=== PATIENT | male | born 1960 | race Caucasian/White ===

== ENCOUNTER → 2020-01-19 11:42 | Outpatient (BNVA) | payer BC, SELFPAY | PROVIDERS: PCP Electrodiagnostic Medicine; Visit Provider Nurse Practitioner Family | DX: Z20.828 Contact with and (suspected) exposure to other viral communicable diseases (principal); J06.9 Acute upper respiratory infection, unspecified | CPT/HCPCS: 87635 ==

== ENCOUNTER 2020-02-02 07:08 | Outpatient (CLI) | payer BC, SELFPAY ==
--- NOTE | 2020-02-02 07:15 | XRR_ITS ---
PROCEDURE INFORMATION: Exam: XR Abdomen, 1 View Exam date and time: 02/02/2020 7:36 AM Age: 59 years old Clinical indication: Condition or disease; Kidney or ureter condition; Calculus (stone) in kidney; Prior surgery; Additional info: Renal stones TECHNIQUE: Imaging protocol: XR of the abdomen. Views: Frontal supine view of the abdomen. 1 View. COMPARISON: NM XR KUB [id number] 07/09/2018 9:19 AM FINDINGS: Gastrointestinal tract: Prominent right-sided stool, with paucity of bowel gas. Intraperitoneal space: Subcentimeter pelvic calcifications, which can be better characterized with CT if clinically indicated. Organs: Multiple bilateral renal calculi again demonstrated, including a 14 mm right renal calculus. Vasculature: Vascular calcification. Bones/joints: Dextroscoliosis and degenerative change. XR/XR KUB [id number] IMPRESSION: 1. Multiple bilateral renal calculi again demonstrated, including a 14 mm right renal calculus. 2. Additional findings as described above.
== END 2020-02-02 07:09 | disposition home or self-care (01) ==
PROVIDERS: PCP Electrodiagnostic Medicine; Visit Provider Urology
DX: N20.0 Calculus of kidney (principal)
CPT/HCPCS: 74018; 81001

== ENCOUNTER 2021-02-01 10:19 | Outpatient (CLI) | payer OTHER, SELFPAY ==
--- NOTE | 2021-02-01 10:15 | XR_ITS ---
WS: [id number] XR KUB [id number] REASON FOR EXAM: RENAL CALCULI FINDINGS: Multiple intrarenal calculi bilaterally. Several of these calculi are complex in configuration. There are calculi in the right kidney which measure 15 mm in the largest dimension. Compared to the previous examination of 02/02/2020 the stone burden in the right kidney kidney does n ot appear to have changed. The stone burden in the left kidney may have changed in the upper pole collection of calculi. (Equivo florence). In the left pelvis there are calcific densities not present on the previous examination. The most pr oximal of these measures 9 x 4 mm. The more inferior measures 6 x 3 mm. They appear to be distal left ureteral calculi. XR/XR KUB [id number] IMPRESSION: Bilateral intrarenal calculi Stone burden in the right kidney appears unchanged. Equivocal change in the stone burden the upper pole of the left kidney. Presumed left distal ureteral calculi as above.
== END 2021-02-01 10:20 | disposition home or self-care (01) ==
LOC: RAD 10:23
PROVIDERS: PCP Electrodiagnostic Medicine; Visit Provider Urology
DX: N20.0 Calculus of kidney (principal); N40.1 Benign prostatic hyperplasia with lower urinary tract symptoms
CPT/HCPCS: 74018; 81003

== ENCOUNTER 2021-02-07 07:43 | Outpatient (CLI) | payer OTHER, SELFPAY ==
--- NOTE | 2021-02-07 08:00 | XR_ITS ---
WS: [id number] KUB, AP supine, 02/07/2021 Clinical Data: RENAL CALCULI Comparison: KUB, 02/01/2021. Findings: Bilateral renal calculi remain the same. There are numerous calcifications in the true pelvis unchang ed. There is a dextroscoliosis. XR/XR KUB [id number] Impression: No change in bilateral renal calculi and pelvic calculi.
== END 2021-02-07 07:44 | disposition home or self-care (01) ==
PROVIDERS: PCP Electrodiagnostic Medicine; Visit Provider Urology
DX: N20.0 Calculus of kidney (principal)
CPT/HCPCS: 74018; 81003

== ENCOUNTER 2021-02-09 08:07 | Outpatient (CLI) | payer OTHER, SELFPAY ==
--- NOTE | 2021-02-09 08:10 | US_ITS ---
WS: [id number] ULTRASOUND RENAL TECHNIQUE: Ultrasound examination of both kidneys. CLINICAL INFORMATION: RENAL CALCULI COMPARISON: None. FINDINGS: RIGHT: Simple right renal cyst measuring 8.1 x 8.3 x 7.5 cm. Right renal parenchymal calculi measurin g 8 mm. Right kidney is normal in size and appearance. Echogenicity: Normal. Cortical thickness: 1.4 cm; Normal. Hydronephrosis: None. Perinephric fluid: None. Right kidney measures: 13.8 cm x 5.7 cm x 4.8 cm. LEFT: Nonobstructing left renal parenchymal calculi largest measuring 15 mm Left kidney is normal in size and appearance. Echogenicity: Normal. Cortical thickness: 1.2 cm; Normal. Hydronephrosis: None. Perinephric fluid: None. Left kidney measures: 12.9 cm x 7.1 cm x 5.7 cm. Normal visualized aorta.Prevoid bladder volume 166 cc Enlarged prostate measuring 4.5 x 4.9 x 4.2 cm with indentation on the bladder. Recommend correlation PSA US/US renal BI* [id number] IMPRESSION: 1. No hydronephrosis in either kidney. 2. Simple right renal cyst measuring 8.1 x 8.3 x 7.5 cm in the upper pole 3. Nonobstructing right renal parenchymal calculi measuring 8-9 mm. 4. Nonobstructing left renal parenchymal calculi largest measuring 15 mm 5. Prevoid bladder volume 166 cc 6. Enlarged prostate measuring 4.5 x 4.9 x 4.2 cm with indentation on the blad chuck. Recommend correlation PSA
== END 2021-02-09 08:08 | disposition home or self-care (01) ==
PROVIDERS: PCP Electrodiagnostic Medicine; Visit Provider Urology
DX: N20.0 Calculus of kidney (principal); N28.1 Cyst of kidney, acquired; N40.0 Benign prostatic hyperplasia without lower urinary tract symptoms; N20.1 Calculus of ureter
CPT/HCPCS: 76770; 81003

== ENCOUNTER 2021-03-09 08:32 | Outpatient (CLI) | payer OTHER, SELFPAY ==
--- NOTE | 2021-03-09 08:30 | XR_ITS ---
WS: [id number] Exam: XR KUB [id number] Date/Time of Exam: 03/09/2021 8:37 AM Reason For Exam: URETERAL CALCULUS Comparison 02/07/2021. Multiple calcifications superimpose both kidneys. These are likely renal stones. The largest calcific ations are in the right kidney. The largest stone measures about 15.76 mm at greatest dimension. No b owel obstruction or free air. No sign of organ enlargement. Degenerative change and dextroscoliosis o f the lumbar spine. Multiple bilateral pelvic calcifications are seen. XR/XR KUB [id number] IMPRESSION: 1. Multiple bilateral renal calculi. The largest stones are in the right kidney . 2. No acute abdominal process.
== END 2021-03-09 08:33 | disposition home or self-care (01) ==
LOC: RAD 08:35
PROVIDERS: PCP Electrodiagnostic Medicine; Visit Provider Urology
DX: N20.2 Calculus of kidney with calculus of ureter (principal); Z20.822 Contact with and (suspected) exposure to COVID-19
CPT/HCPCS: 74018; 81003; 87635

== ENCOUNTER 2021-03-11 08:17 | Outpatient (CLI) | payer OTHER, SELFPAY ==
--- NOTE | 2021-03-11 16:00 | CT_ITS ---
WS: [id number] Comparison 07/05/2011. Exam: CT abdomen pelvis wo con [id number] Date/Time of Exam: 03/11/2021 8:27 AM Reason For Exam: STONE DLP: 1462.[address] scans at [facility] use at least one of these dose optimization techniques: automated e xposure control; mA and/or kV adjustment per patient size (includes targeted exams where dose is matc hed to clinical indication); or iterative reconstruction. There are 2 minimally obstructing stones in the distal left ureter. The largest stone measures 11.4 m m at greatest diameter and is in the lower one third of the left ureter. The smaller stone measures 8 mm and is near the UV J. No significant hydronephrosis is seen. There are multiple prominent and sma ll nonobstructing stones in both kidneys. No stones are seen in the right ureter. There is an 8.3 cm cyst in the upper pole of the right kidney. Normal adrenal glands. The lower lung zones are clear. Th e abdominal aorta is normal in caliber. Unremarkable liver, gallbladder, spleen and stomach. No free air or lymphadenopathy. The pancreas is unremarkable. Small bowel loops are normal in caliber. No sig n of acute appendix. No significant large bowel abnormality is demonstrated. Intact urinary bladder. No mass or adenopathy in the pelvis. No destructive bone lesions. DJD and dextroscoliosis the lumbar spine. Mild prostatomegaly. The prostate gland measures 5.7 cm at greatest transverse dimension. CT/CT abdomen pelvis con [id number] IMPRESSION: 1. 2 minimally obstructing stones in the left ureter. The largest stone measure s 11.4 mm at greatest diameter and is in the lower one third of the left ureter . The smaller stone measures 8 mm at greatest diameter and is near the UVJ. 2. There are multiple prominent and small stones in both kidneys which are nono bstructing. 3. 8.3 cm upper pole cyst in the right kidney. 4. Other minor nonemergent findings as noted above.
== END 2021-03-11 08:18 | disposition home or self-care (01) ==
PROVIDERS: PCP Electrodiagnostic Medicine; Visit Provider Urology
DX: N20.1 Calculus of ureter (principal); N20.0 Calculus of kidney
CPT/HCPCS: 74176

== ENCOUNTER 2021-03-14 13:24 | Day surgery (SDC) | payer OTHER, SELFPAY ==
[2021-03-11 17:39] VITALS: BMI 33.5
[2021-03-14] VITALS (7 sets, daily range): BP systolic 132–163; BP diastolic 75–100; PULSE 47–60; RESP 16–18; TEMP 36.3–37.4; O2SAT 93–100
--- NOTE | 2021-03-14 | SCC_ITS ---
Procedure Done: 1. Cystoscopy, left retrograde ureteropyelogram 2. Left ureteroscopy with laser lithotripsy 3. Left ureteral stent placement 4.5 [place] by 28 cm double-pigtail stent with string attached distally. 37 seconds of fluoroscopic guidance, for a cumulative dose of 11.28 mGy, was provided to Dr. Rojas by the radiology department. C-arm images of the abdomen were saved for the patient's permanent record. PRIMITIVOD
--- NOTE | 2021-03-14 13:31 | SC_ITS ---
WS: [id number] C-ARM RADIOGRAPHS ABDOMEN; 2 IMAGES HISTORY: Left ureteroscopy COMPARISON: None available. Very limited evaluation of the abdomen. There is a vague outline of a pigtail catheter overlying the expected location of the LEFT kidney. SC/C-arm FL for Urology IMPRESSION: Intraoperative imaging during LEFT ureteroscopy.
[2021-03-14] MEDS: sodium chloride 0.9% 1,000 ML 30 ML IV (13:52)
--- NOTE | 2021-03-14 14:23 | ANES.PREANE2 ---
Pre-Anesthetic Assessment Pre-Anesthetic Assessment: Height/Weight: Height 1.83 m Weight 112.037 kg Temp Pulse Resp BP Pulse Ox 97.4 F L 55 L 18 162/100 97 03/14/21 13:42 03/14/21 13:42 03/14/21 13:42 03/14/21 13:42 03/14/21 13:42 Preop Diagnosis: Left ureteral calculus Proposed Procedure: Operation Date: 03/14/21 14:50 Proposed Procedures p Laser Lithotripsy 14310 72137 N20.1(Left) - MD jeanie Fonseca Cystoscopy(Left) - MD jeanie Fonseca Retrograde Pyelogram(Left) - MD jeanie Fonseca Ureteroscopy(Left) - MD jeanie Fonseca Ureteral Stent Placement(Left) - Marcel Rojas MD Familial anesthetic complications: None Was Beta Kristie taken within 24 hours: Yes Was Clonidine taken within 24 hours: N/A Last intake: Intake Last Liquid Date 03/14/21 Last Liquid Time 09:15 Last Solid Date 03/13/21 Last Solid Time 11:45 Social: Social History: No alcohol and No tobacco Airway: Cervical ROM: WNL MP: 3 Dentition: Full CV/HEM: CV/HEM: HTN Metabolic: Metabolic: Hyperlipidemia Anesthetic Plan: ASA status: 2 Anesthesia: General Risk of > 500 ml blood loss (7ml/kg in children): No Meds/Allergies Current Medications: Current Medications Generic Name Dose Route Start Last Admin Trade Name Freq PRN Reason Stop Dose Admin Sodium Chloride 1,000 mls @ 30 ml s/hr 03/14/21 13:45 03/14/21 13:52 Sodium Chloride 0.9% IV 03/15/21 13:44 30 mls/hr .Q24H MAXINE Administration PFSH Anesthesia PFSH: Medical History BPH loc w urin obs/LUTS HTN (hypertension) Hypocitraturia Renal calculi Surgical History H/O left breast biopsy benign H/O lymph node excision neck H/O umbilical hernia repair History of ear surgery acoustic neuroma S/P extracorporeal shock wave therapy S/P ureteral stent placement Family History Father , 49 Cancer Melanoma Mother , 83 Dementia Social History Alcohol intake: never Marital status: Current occupational status: employed History of recent travel: No Data Anesthesia CBC & Chem 7: 03/14/21 13:50 Cardiac Studies: No Data to Display
[2021-03-14 14:24] LABS: Anion Gap 15.7 (5-19); Blood Urea Nitrogen 17 mg/dL (8-23); Calcium 8.8 mg/dL (8.5-10.5); Carbon Dioxide 26 mmol/L (22-29); Chloride 102 mmol/L (98-107); Glomerular Filtration Rate 75.7 mL/min (90-130); Glucose 85 mg/dL (65-115); Osmolality Calculated 291 mOsm/kg (285-295); Potassium 3.7 mmol/L (3.5-5.1); Sodium 140 mmol/L (136-145)
--- NOTE | 2021-03-14 16:08 | W.PM.OPSUD ---
Surgery/Procedure H&P Update DATE OF PROCEDURE: March 14, 2021 DATE H&P PERFORMED: 03/09/21 H&P UPDATE INFORMATION: I have reviewed H&P completed within last 30 days, I have examined patient prior to procedure, No changes to prior documentation and H&P is in [facility] E[facility] on date indicated CHANGES TO PREVIOUS DOCUMENTATION: Unaware of having passed any stones. PREOP DIAGNOSIS: Left ureteral calculus PLANNED PROCEDURE: Operation Date: 03/14/21 14:50 Proposed Procedures p Laser Lithotripsy 79718 89743 N20.1(Left) - Marcel Rojas MD s Cystoscopy(Left) - Marcel Rojas MD s Retrograde Pyelogram(Left) - MD jeanie Fonseca Ureteroscopy(Left) - Marcel Rojas MD s Ureteral Stent Placement(Left) - Marcel Rojas MD
[2021-03-14] MEDS: levofloxacin-dextrose 5 % 500 MG/100 ML PREMIX 100 MG IV (16:17)
[2021-03-14] MEDS: iohexol 300 mg/mL 50 mL Btl (OR ONLY) XX (16:44)
--- NOTE | 2021-03-14 17:44 | PM.OP ---
Operative Report Date of procedure: March 14, 2021 Pre-op Diagnosis: Left ureteral calculi x2 Post-op diagnosis: same Post-op Findings: 2 stones in the left distal ureter. Both stones completely fragmented with fragments removed Procedure Done: 1. Cystoscopy, left retrograde ureteropyelogram 2. Left ureteroscopy with laser lithotripsy 3. Left ureteral stent placement 4.5 [place]ij[place] by 28 cm double-pigtail stent with string attached distally. Specimens removed/disposition: Stone fragments Pathology: Stone fragments Surgeon: Bob Anesthesia: General Estimated blood loss: <5 cc Urine output: Not measured Complications: none Findings: Stones were in the expected position. Completely fragmented with laser lithotripsy. All substantial fragments removed. Stent left indwelling at the completion of the procedure with string attached distally. Condition: stable Disposition: PACU Brief History: Mr. Maxwell is a very pleasant 61-year-old white male with a history of recurrent urolithiasis who was recently diagnosed on routine surveillance KUB for bilateral renal calculi to have 2 suspicious calcifications in the area of the left distal ureter. Ultimately underwent a CT scan to confirm that these were actually ureteral and that he was having no symptoms. CT scan showed no evidence of significant obstruction but both the calcification suspicious for ureteral stones were confirmed to be ureteral stones. He is admitted now for endoscopic treatment of the stones. We discussed ESWL but in the past he has had very little luck with ESWL significantly fragmenting the stones. Procedure: After routine preoperative evaluation examination and obtaining of informed consent he was taken to the operating suite on 03/14/2021 where general anesthesia was administered without difficulty after appropriate timeout was performed, SCDs confirmed to be functioning, preoperative antibiotics administered, beta-karen protocol confirmed. Prepped and draped in usual sterile fashion in dorsolithotomy position paying careful attention to avoiding pressure points. 21 Azerbaijani cystoscope with 30 degree lens was introduced into the urethral meatus and advanced into the bladder under videoscopy. The bladder was systematically examined and found to be within normal limits. He had a very large prostate with moderate trabeculation of the bladder. An 8 Azerbaij[place] cone-tip catheter was intubated to the right ureteral orifice for right retrograde ureteropyelogram demonstrating the calcification seen on fluoroscopy to be within ureter. The ureter proximal to that was mildly dilated only. A flexible tip guidewire was easily advanced up the left ureter bypassing the 2 stones and curling in the area of the upper pole calyx. The distal ureter was then dilated with a 15 Azerbaijani 4 cm balloon with no waist at 4 mehdi of pressure. The wire was secured to the drapes as a safety wire and then a 7.5 [place]ij[place] offset semirigid ureteroscope was easily advanced up the left ureter encountering the more distal stone initially which was fragmented with a 365 ?m thulium superpulse laser fiber into small pieces that were basketed out. After clearance of these fragments the scope was then passed up to the larger more proximally located stone which was as well fragmented in the same fashion utilizing dusting technique as well. On final inspection after removal with a basket no significant fragments remained with passage of the scope up to the proximal ureter. The stones which had been dropped into the bladder with passage of the ureteroscope were then evacuated out through the cystoscope. Final inspection revealed no significant fragments remaining in the bladder. The cystoscope was then backloaded over the guidewire and a 4.5 [place]ij[place] by 28 cm double-pigtail stent with string attached distally was advanced over the guidewire through the cystoscope into appropriate position as confirmed via fluoroscopy and cystoscopy. The string was shortened bladder drained and the procedure was completed. He tolerated procedure well without complications and was awakened in the operating room and returned to the recovery room in stable condition. PLANS: 1. Anticipate discharge from outpatient surgery 2. Stent removal with string at a time to be arranged, preferably next week if he can tolerate the stent adequately.
--- NOTE | 2021-03-14 18:04 | SUR.PHASEI ---
0756 pt awakes easily to voice oral airway out pt on RA trial, pt alert with good resp effort, VSS. iv patent , pt denies pain , nausea, and cold.
[2021-03-19 21:04] LABS: Stone Source NOT GIVEN
== END 2021-03-14 18:52 | disposition home or self-care (01) ==
PROVIDERS: Anesthesiology; PCP Electrodiagnostic Medicine; Visit Provider Urology
PROC: (CPT 52356; principal; 2021-03-14 14:30)
PROC: 0TJB8ZZ Inspection of Bladder, Via Natural or Artificial Opening Endoscopic (ICD-10-PCS; CPT 52000; 2021-03-14 14:30)
PROC: (CPT 74420; 2021-03-14 14:30)
PROC: 0TJ98ZZ Inspection of Ureter, Via Natural or Artificial Opening Endoscopic (ICD-10-PCS; CPT 52351; 2021-03-14 14:30)
PROC: (CPT 50605; 2021-03-14 14:30)
DX: N20.1 Calculus of ureter (principal); I10 Essential (primary) hypertension; Z87.442 Personal history of urinary calculi
CPT/HCPCS: 52356; 36415; 76000; 80048; 82365; 88300; C2625; J1956; J2405; J2704; J3010; J3490; J7030

== ENCOUNTER 2021-12-22 09:02 | Outpatient (CLI) | payer OTHER, SELFPAY ==
--- NOTE | 2021-12-22 09:11 | XR_ITS ---
WS: [id number] Exam: XR KUB [id number] Date/Time of Exam: 12/22/2021 9:11 AM Reason For Exam: N20.0 - Calculus of kidney No bowel obstruction or free air. Numerous calcifications superimpose both kidneys apparently represe nting known renal stones. Nonspecific bilateral pelvic calcifications. No sign of organ enlargement. Advanced DJD of the lumbar spine with dextroscoliosis. XR/XR KUB [id number] IMPRESSION: 1. Multiple bilateral renal calculi. 2. No acute abdominal process.
[2021-12-22 11:56] LABS: Prostate Specific AG Urology 2.14 ng/mL (0-4)
== END 2021-12-22 09:03 | disposition home or self-care (01) ==
LOC: RAD 09:03
PROVIDERS: PCP Electrodiagnostic Medicine; Visit Provider Urology
DX: Z12.5 Encounter for screening for malignant neoplasm of prostate (principal); N20.0 Calculus of kidney
CPT/HCPCS: 36415; 74018; 81003; 84153; 87086

== ENCOUNTER 2022-07-04 09:47 | Outpatient (CLI) | payer OTHER, SELFPAY ==
--- NOTE | 2022-07-04 09:55 | XRR_ITS ---
PROCEDURE INFORMATION: Exam: XR Abdomen Exam date and time: 07/04/2022 9:58 AM Age: 62 years old Clinical indication: Condition or disease; Kidney or ureter condition; Calculus (stone) in kidney; Additional info: Urolithiasis, lindsayb @ [facility] 07/04/22 @ 0945 appointment to follow TECHNIQUE: Imaging protocol: Radiologic exam of the abdomen. Views: Frontal supine view of the abdomen. 1 View. COMPARISON: 1. CR XR KUB [id number] 12/22/2021 9:[address] abdomen pelvis wo con [id number] 03/11/2021 8:35 AM FINDINGS: Gastrointestinal tract: Nonobstructive bowel gas pattern. Organs: Bilateral nephrolithiasis again noted, without significant change from prior exam. Vasculature: Multiple calcified vascular phleboliths noted in the pelvis. Bones/joints: Scoliotic curvature of the spine with multilevel degenerative disc disease. XR/XR KUB [id number] IMPRESSION: Bilateral nephrolithiasis again noted, without significant change from prior exam.
== END 2022-07-04 09:48 | disposition home or self-care (01) ==
LOC: RAD 09:50
PROVIDERS: PCP Electrodiagnostic Medicine; Visit Provider Urology
DX: N20.0 Calculus of kidney (principal)
CPT/HCPCS: 74018

== ENCOUNTER → 2023-02-27 10:17 | Outpatient (BNVA) | payer OTHER, SELFPAY | PROVIDERS: PCP Electrodiagnostic Medicine; Visit Provider Nurse Practitioner Family | DX: L21.8 Other seborrheic dermatitis (principal); L57.0 Actinic keratosis; L82.1 Other seborrheic keratosis; L81.4 Other melanin hyperpigmentation; L57.8 Other skin changes due to chronic exposure to nonionizing radiation | CPT/HCPCS: 17000; 99214 ==

== ENCOUNTER → 2023-08-27 11:23 | Outpatient (BNVA) | payer OTHER, SELFPAY | PROVIDERS: PCP Electrodiagnostic Medicine; Visit Provider Nurse Practitioner Family | DX: L21.8 Other seborrheic dermatitis (principal); L57.0 Actinic keratosis; L82.1 Other seborrheic keratosis; L81.4 Other melanin hyperpigmentation; L57.8 Other skin changes due to chronic exposure to nonionizing radiation | CPT/HCPCS: 17000; 99214 ==

== ENCOUNTER → 2024-06-25 10:21 | Outpatient (BNVA) | payer MEDICARE, OTHER, SELFPAY | PROVIDERS: PCP Electrodiagnostic Medicine; Visit Provider Nurse Practitioner Family | DX: Z57.8 Occupational exposure to other risk factors (principal); L81.4 Other melanin hyperpigmentation; Z08 Encounter for follow-up examination after completed treatment for malignant neoplasm; Z85.828 Personal history of other malignant neoplasm of skin; L57.0 Actinic keratosis | CPT/HCPCS: 17000; 99213 ==

== ENCOUNTER → 2024-12-23 08:22 | Outpatient (BNVA) | payer MEDICARE, OTHER, SELFPAY | PROVIDERS: PCP Electrodiagnostic Medicine; Visit Provider Nurse Practitioner Family | DX: L57.8 Other skin changes due to chronic exposure to nonionizing radiation (principal); L81.4 Other melanin hyperpigmentation; D22.9 Melanocytic nevi, unspecified; Z08 Encounter for follow-up examination after completed treatment for malignant neoplasm; Z85.828 Personal history of other malignant neoplasm of skin; L57.0 Actinic keratosis | CPT/HCPCS: 17000; 99213 ==